=== PATIENT | female | born 1995 | race African-American/Black ===

== ENCOUNTER 2018-02-24 03:54 | Emergency (ER) | payer MEDICAID ==
[~2018-02-24] VITALS: Ht 162.6 cm; Wt 70.3 kg
[2018-02-24 06:17] VITALS: BP 113/67
== END 2018-02-24 06:17 | disposition home or self-care (01) ==
LOC: ED 03:54
DX: S09.90XA Unspecified injury of head, initial encounter (principal); Y04.8XXA Assault by other bodily force, initial encounter; Z88.8 Allergy status to other drugs, medicaments and biological substances; Z88.1 Allergy status to other antibiotic agents
CPT/HCPCS: Q0092